=== PATIENT | male | born 1940 | race Caucasian/White ===

== ENCOUNTER → 2016-08-13 | Outpatient (CLI) | payer MEDICARE, BC ==
[2014-01-13 11:23] VITALS: BP 149/80
[~2016-08-13] MED LIST: ACET-58 PO; ACET325T9 PO; ASCO500T PO; ASPI81TA2 PO; CALC600T PO; CETI10TA22 PO; DABI150C PO; DILT120C97 PO; DILT240C2 PO; DIPH25CA32 PO; FISH1CAP PO; LEVO50TA5 PO; MULT-245 PO; OMEP20CA5 PO; RANI150C PO
--- NOTE | 2016-08-14 18:13 | CARD ---
APPROVED REPORT EXAM: Two-dimensional and M-mode echocardiogram with Doppler and color Doppler. Other Information Quality : GoodHR: 57bpm INDICATION Dizziness and Vertigo Atrial Fibrillation 2D DIMENSIONS RVDd3.0 (2.9-3.5cm)Left Atrium(2D)3.5 (1.6-4.0cm) IVSd0.9 (0.7-1.1cm)Aortic Root(2D)2.9 (2.0-3.7cm) LVDd4.9 (3.9-5.9cm)LVOT Diameter2.2 (1.8-2.4cm) PWd0.8 (0.7-1.1cm)LVDs3.5 (2.5-4.0cm) FS (%) 29.2 %SV62.3 ml LVEF(%)55.9 (>50%) Aortic Valve AoV Peak Darrin.146.7cm/sAoV VTI35.6cm AO Peak GR.8.6mmHgLVOT Peak Darrin.94.7cm/s LVOT VTI 22.55cmAO Mean GR.5mmHg WARD (VMAX)2.86oh7LDN (VTI)2.48cm2 AI P 1/2 Wwgc973db Mitral Valve MV E Ifpbilzt23.6cm/sMV DECEL TNXK800aq MV A Fqlkwkom51.5cm/sMV E Mean Gr.2mmHg MV TGG00cbQ/A Ratio0.9 MV A Gfjhxcmh461rlAOK (PHT)3.03cm2 TDI E/Lateral E'10.0E/Medial E'12.4 Pulmonary Valve PV Peak Lxaysfpb77.8cm/sPV Peak Grad.3mmHg RVOT VTI18.4cm Tricuspid Valve TR P. Hryklqqx955gk/sRAP TQWPFJAP4ggLi TR Peak Gr.36kwLeBVUN92nbRx Pulmonary Vein S1 Aazrigzo87.6cm/sD2 Opgrbbmv81.2cm/s PVa bbvszoze888azjs LEFT VENTRICLE The left ventricle is normal size. There is normal left ventricular wall thickness. Left ventricle sy stolic function is normal. The Ejection Fraction is 50-55%. There is normal LV segmental wall motion. Transmitral Doppler flow pattern is Grade I-abnormal relaxation pattern. There is no ventricular sep myles defect visualized. RIGHT VENTRICLE The right ventricle is normal size. There is normal right ventricular wall thickness. The right ventr icular systolic function is normal. ATRIA The left atrium size is normal. The right atrium size is normal. The atrial septum is aneurysmal. The re is no Doppler evidence for an atrial septal defect. AORTIC VALVE The aortic valve is mildly thickened. The aortic valve is trileaflet. Doppler and Color Flow revealed mild aortic regurgitation. There is no significant aortic valvular stenosis. MITRAL VALVE The mitral valve is normal in structure and function. There is no evidence of mitral valve prolapse. There is no mitral valve stenosis. Doppler and Color Flow revealed mild to moderate mitral regurgitat ion. TRICUSPID VALVE The tricuspid valve is normal in structure and function. Doppler and Color Flow revealed trace tricus pid regurgitation. The PA pressure was estimated at 22 mmHg. PULMONIC VALVE The pulmonary valve is normal in structure and function. Doppler and Color Flow revealed trace pulmon ic valvular regurgitation. GREAT VESSELS The aortic root is normal in size. The ascending aorta is normal in size. Normal pulmonary venous kiley w (Doppler). The IVC is normal in size and collapses >50% with inspiration. PERICARDIAL EFFUSION There is no pleural effusion. There is no evidence of significant pericardial effusion. Critical Notification Critical Value: No <Conclusion> The left ventricle is normal size. Left ventricle systolic function is normal. The Ejection Fraction is 50-55%. There is no significant aortic valvular stenosis. Doppler and Color Flow revealed mild aortic regurgitation. Doppler and Color Flow revealed mild to moderate mitral regurgitation. Doppler and Color Flow revealed trace tricuspid regurgitation. The PA pressure was estimated at 22 mmHg.
== END | disposition home or self-care (01) ==
LOC: ECHO 12:57
PROVIDERS: ATTEND Internal Medicine Cardiovascular Disease
DX: I48.91 Unspecified atrial fibrillation (principal); R42 Dizziness and giddiness; I35.1 Nonrheumatic aortic (valve) insufficiency; I34.0 Nonrheumatic mitral (valve) insufficiency; I07.1 Rheumatic tricuspid insufficiency
CPT/HCPCS: 93306

== ENCOUNTER → 2016-08-19 | Outpatient (CLI) | payer MEDICARE, BC ==
[2014-01-13 11:23] VITALS: BP 149/80
[2016-08-19 17:05] LABS: ALBUMIN 3.8 g/dL (3.4-5.0); ALBUMIN/GLOBULIN RATIO 1.1 (1.0-1.7); CALCIUM 9.1 mg/dL (8.5-10.1); CREATININE 1.3 mg/dL (0.7-1.3); GFR 53.7; POTASSIUM 4.5 mmol/L (3.5-5.1); TOTAL BILIRUBIN 0.5 mg/dL (0.2-1.0); TOTAL PROTEIN 7.4 g/dL (6.4-8.2)
[2016-08-19 17:06] LABS: CHOLESTEROL/HDL RATIO 4.5
== END | disposition home or self-care (01) ==
LOC: LAB 16:23
PROVIDERS: ATTEND Family Medicine
DX: E03.9 Hypothyroidism, unspecified (principal)
CPT/HCPCS: 36415; 80053; 80061; 84443

== ENCOUNTER → 2016-12-17 | Outpatient (CLI) | payer MEDICARE, BC ==
[2014-01-13 11:23] VITALS: BP 149/80
[~2016-12-17] MED LIST changes: +ASPI-630 PO; -ASPI81TA2 PO; +DILT120C80 PO; -DILT120C97 PO
[2016-12-17 15:25] LABS: BASO # 0.1 x10^3/uL (0.0-0.2); BASO % 1 % (0-3); EOS % 3 % (0-3); HEMATOCRIT 43.6 % (39.0-53.0); HEMOGLOBIN 15.2 g/dL (13.0-17.5); LYMPH # 2.4 x10^3/uL (1.0-4.8); LYMPH % 36 % (24-48); MEAN CORPUSCULAR HEMOGLOBIN 32 pg (25-35); MEAN CORPUSCULAR HGB CONC 35 g/dL (31-37); MEAN CORPUSCULAR VOLUME 93 fL (79-100); MONO % 12 % (0-9); NEUT % 48 % (31-73); PLATELET COUNT 212 x10^3/uL (140-400); RED BLOOD COUNT 4.71 x10^6/uL (4.30-5.70); RED CELL DISTRIBUTION WIDTH 13.4 % (11.5-14.5); WHITE BLOOD COUNT 6.6 x10^3/uL (4.0-11.0)
[2016-12-17 15:42] LABS: CALCIUM 8.4 mg/dL (8.5-10.1); CREATININE 1.3 mg/dL (0.7-1.3); GFR 53.5; PHOSPHORUS 3.3 mg/dL (2.6-4.7); POTASSIUM 4.4 mmol/L (3.5-5.1)
[2016-12-18 04:19] LABS: PTH INTACT 33 pg/mL (15-65)
== END | disposition home or self-care (01) ==
LOC: LAB 14:41
PROVIDERS: ATTEND Internal Medicine Nephrology
DX: N18.3 Chronic kidney disease, stage 3 (moderate) (principal)
CPT/HCPCS: 36415; 80069; 83970; 85027

== ENCOUNTER → 2017-11-24 | Outpatient (CLI) | payer MEDICARE, BC ==
[2017-11-24 16:42] LABS: ADD MAN DIFF? NO
[2017-11-24 16:58] LABS: BASO # 0.1 x10^3/uL (0.0-0.2); BASO % 1 % (0-3); EOS # 0.1 x10^3/uL (0.0-0.7); EOS % 1 % (0-3); HEMATOCRIT 45.4 % (39.0-53.0); HEMOGLOBIN 15.6 g/dL (13.0-17.5); LYMPH # 2.2 x10^3/uL (1.0-4.8); LYMPH % 26 % (24-48); MEAN CORPUSCULAR HEMOGLOBIN 32 pg (25-35); MEAN CORPUSCULAR HGB CONC 34 g/dL (31-37); MEAN CORPUSCULAR VOLUME 92 fL (79-100); MONO # 0.9 x10^3/uL (0.0-1.1); MONO % 12 % (0-9); NEUT # 4.9 x10^3uL (1.8-7.7); NEUT % 60 % (31-73); PLATELET COUNT 212 x10^3/uL (140-400); RED BLOOD COUNT 4.92 x10^6/uL (4.30-5.70); RED CELL DISTRIBUTION WIDTH 13.5 % (11.5-14.5); WHITE BLOOD COUNT 8.2 x10^3/uL (4.0-11.0)
[2017-11-24 17:08] LABS: BLOOD UREA NITROGEN 34 mg/dL (8-26); CALCIUM 9.2 mg/dL (8.5-10.1); CREATININE 1.4 mg/dL (0.7-1.3); GLUCOSE 99 mg/dL (70-99); TOTAL PROTEIN 7.9 g/dL (6.4-8.2)
[2017-11-24 17:09] LABS: ALK PHOS 92 U/L (46-116); ALT (SGPT) 21 U/L (16-63); ANION GAP 9 (6-14); AST (SGOT) 15 U/L (15-37); BUN/CREATININE RATIO 24 (6-20); CARBON DIOXIDE 26 mmol/L (21-32); CHLORIDE 102 mmol/L (98-107); CHOLESTEROL 219 mg/dL (0-200); HDLC 40 mg/dL (40-60); LDLC 149 mg/dL (0-100); NON-HDL CHOLESTEROL 179 mg/dL (0-129); POTASSIUM 4.8 mmol/L (3.5-5.1); SODIUM 137 mmol/L (136-145); TOTAL BILIRUBIN 0.5 mg/dL (0.2-1.0); TRIGLYCERIDES 149 mg/dL (0-150); VLDLC 30 mg/dL (0-40)
[2017-11-24 17:12] LABS: CHOLESTEROL/HDL RATIO 5.5
[2017-11-24 17:16] LABS: THYROID STIM HORMONE (TSH) 2.327 uIU/mL (0.358-3.74)
== END | disposition home or self-care (01) ==
LOC: LAB 16:21
DX: I10 Essential (primary) hypertension (principal); N18.9 Chronic kidney disease, unspecified; E03.9 Hypothyroidism, unspecified
CPT/HCPCS: 36415; 80053; 80061; 84443; 85025

== ENCOUNTER → 2017-12-21 | Outpatient (CLI) | payer MEDICARE, BC ==
[2017-12-21 15:20] LABS: ADD MAN DIFF? NO
[2017-12-21 15:28] LABS: BASO # 0.1 x10^3/uL (0.0-0.2); BASO % 1 % (0-3); EOS # 0.1 x10^3/uL (0.0-0.7); EOS % 2 % (0-3); HEMATOCRIT 45.6 % (39.0-53.0); HEMOGLOBIN 15.7 g/dL (13.0-17.5); LYMPH # 2.1 x10^3/uL (1.0-4.8); LYMPH % 26 % (24-48); MEAN CORPUSCULAR HEMOGLOBIN 32 pg (25-35); MEAN CORPUSCULAR HGB CONC 34 g/dL (31-37); MEAN CORPUSCULAR VOLUME 92 fL (79-100); MONO # 0.9 x10^3/uL (0.0-1.1); MONO % 11 % (0-9); NEUT % 61 % (31-73); PLATELET COUNT 199 x10^3/uL (140-400); RED BLOOD COUNT 4.95 x10^6/uL (4.30-5.70); RED CELL DISTRIBUTION WIDTH 13.7 % (11.5-14.5); WHITE BLOOD COUNT 8.2 x10^3/uL (4.0-11.0)
[2017-12-21 16:47] LABS: ANION GAP 13 (6-14); BLOOD UREA NITROGEN 21 mg/dL (8-26); CALCIUM 8.8 mg/dL (8.5-10.1); CARBON DIOXIDE 23 mmol/L (21-32); CHLORIDE 103 mmol/L (98-107); CREATININE 1.3 mg/dL (0.7-1.3); GFR 53.4; GLUCOSE 102 mg/dL (70-99); PHOSPHORUS 3.1 mg/dL (2.6-4.7); POTASSIUM 4.7 mmol/L (3.5-5.1); SODIUM 139 mmol/L (136-145)
[2017-12-22 06:12] LABS: CALCIUM PTH 9.7 mg/dL (8.6-10.2); CREATININE PTH 1.26 mg/dL (0.76-1.27); PHOSPHORUS PTH 3.2 mg/dL (2.5-4.5); PTH INTACT 40 pg/mL (15-65); eGFR AFRICAN-AMER 63 (>59); eGFR NON AFRICAN-AMER 54 (>59)
== END | disposition home or self-care (01) ==
LOC: LAB 15:04
DX: I12.9 Hypertensive chronic kidney disease with stage 1 through stage 4 chronic kidney disease, or unspecified chronic kidney disease (principal); N18.3 Chronic kidney disease, stage 3 (moderate)
CPT/HCPCS: 36415; 80069; 83970; 85025

== ENCOUNTER → 2018-03-15 | Outpatient (CLI) | payer MEDICARE, BC ==
[2014-01-13 11:23] VITALS: BP 149/80
[2018-03-15 16:33] LABS: ALBUMIN/GLOBULIN RATIO 1.1 (1.0-1.7); CALCIUM 9.3 mg/dL (8.5-10.1); CREATININE 1.2 mg/dL (0.7-1.3); GFR 58.6; POTASSIUM 4.1 mmol/L (3.5-5.1); TOTAL BILIRUBIN 0.6 mg/dL (0.2-1.0); TOTAL PROTEIN 7.7 g/dL (6.4-8.2)
== END | disposition home or self-care (01) ==
LOC: LAB 15:47
PROVIDERS: ATTEND Family Medicine
DX: E78.5 Hyperlipidemia, unspecified (principal)
CPT/HCPCS: 36415; 80053; 80061

== ENCOUNTER → 2018-08-18 | Outpatient (CLI) | payer MEDICARE, BC ==
[2014-01-13 11:23] VITALS: BP 149/80
[~2018-08-18] MED LIST changes: +AMIO200T4 PO; +APIX2.5T PO; -DILT120C80 PO; +DILT120C85 PO
--- NOTE | 2018-08-18 17:37 | CARD ---
MR#: [id number] Date of Study: 08/18/2018 Ordering Physician: ANUSHA CLAIRE, Referring Physician: ANUSHA CLAIRE, Tech: Maite Sheffield APPROVED REPORT EXAM: Two-dimensional and M-mode echocardiogram with Doppler and color Doppler. Other Information Quality : AverageHR: 98bpm Rhythm : Atrial Fibrillation INDICATION Atrial Fibrillation RISK FACTORS Hypertension Hyperlipidemia 2D DIMENSIONS RVDd2.6 (2.9-3.5cm)Left Atrium(2D)3.5 (1.6-4.0cm) IVSd1.2 (0.7-1.1cm)Aortic Root(2D)3.1 (2.0-3.7cm) LVDd5.3 (3.9-5.9cm)LVOT Diameter2.2 (1.8-2.4cm) PWd1.0 (0.7-1.1cm)LVDs4.5 (2.5-4.0cm) FS (%) 14.3 %SV40.1 ml Aortic Valve AoV Peak Darrin.147.2cm/sAoV VTI28.4cm AO Peak GR.8.7mmHgLVOT Peak Darrin.99.1cm/s LVOT VTI 19.60cmAO Mean GR.6mmHg WARD (VMAX)1.96zh7QUY (VTI)2.63cm2 AI P 1/2 Yews949bf Mitral Valve MV E Peak Gr.146mmHgMV E Mean Gr.3mmHg Pulmonary Valve PV Peak Wjrsxxxr476.2cm/sPV Peak Grad.6mmHg Tricuspid Valve TR P. Fbqkjbkl592mf/sRAP KBNTJDNP5qdXx TR Peak Gr.55hrRvCJHL08dfFl Pulmonary Vein S1 Hpjwblwh61.9cm/sD2 Yynvixyj10.4cm/s PVa tlddjmnk525tvbf LEFT VENTRICLE The left ventricle is normal size. There is borderline concentric left ventricular hypertrophy. The l eft ventricular systolic function is normal The Ejection Fraction is 50-55% There is normal LV segmen myles wall motion. Diastology indeterminate RIGHT VENTRICLE The right ventricle is normal size. There is normal right ventricular wall thickness. The right ventr icular systolic function is normal. ATRIA The left atrium is borderline dilated. The right atrium size is normal. The interatrial septum bows t o the right. AORTIC VALVE The aortic valve is thickened but opens well. Doppler and Color Flow revealed mild aortic regurgitati on. There is no significant aortic valvular stenosis. MITRAL VALVE The mitral valve is normal in structure and function. There is no evidence of mitral valve prolapse. There is no mitral valve stenosis. Doppler and Color-flow revealed mild to moderate mitral regurgitat ion. TRICUSPID VALVE The tricuspid valve is normal in structure and function. Doppler and Color Flow revealed mild tricusp id regurgitation with an estimated PAP of 28 mmHg. There is no tricuspid valve stenosis. PULMONIC VALVE The pulmonic valve is not well visualized. Doppler and Color Flow revealed no pulmonic valvular regur gitation. GREAT VESSELS The aortic root is normal in size. The IVC is normal in size and collapses >50% with inspiration. PERICARDIAL EFFUSION There is no evidence of significant pericardial effusion. Critical Notification Critical Value: No <Conclusion> The left ventricular systolic function is normal The Ejection Fraction is 50-55% Mild aortic regurgitation. Mild to moderate mitral regurgitation. Mild tricuspid regurgitation with an estimated PAP of 28 mmHg. There is no evidence of significant pericardial effusion. Signed by : Anusha Claire, Electronically Approved : 08/18/2018 17:36:15
== END | disposition home or self-care (01) ==
LOC: ECHO 13:03
PROVIDERS: ATTEND Internal Medicine Cardiovascular Disease
DX: I08.3 Combined rheumatic disorders of mitral, aortic and tricuspid valves (principal); I48.91 Unspecified atrial fibrillation; I10 Essential (primary) hypertension; E78.5 Hyperlipidemia, unspecified
CPT/HCPCS: 93306

== ENCOUNTER 2018-10-22 11:19 | Day surgery (SDC) | payer MEDICARE, BC ==
--- NOTE | 2018-10-21 09:49 | NUR ---
SPOKE WITH PT REGARDING PREOP TIMES, AND MEDS TO TAKE IN AM INCLUDING THYROID, CARDIZEM, PRILOSEC, AMIODARONE, ELLIQUIS. EXTREMELY HARD OF HEARING. HX ENTERED BUT NEEDS REVIEWED ON DOS.
[~2018-10-22 11:19] MED LIST changes: +HYDROmorphone 2 MG/ML VIAL IV PRN; +IV RINGERS,LACTATED 1000ML 1,000 ML IV SCH; +MORPHINE SULFATE 2 MG/ML VIAL. IV PRN; +ONDANSETRON PF 4 MG/2 ML VIAL. IV PRN; +PROCHLORPERAZINE 10 MG/2 ML VIAL. IV PRN; +fentaNYL PF VIAL 100 MCG/2 ML VIAL IV PRN
[2018-10-22] MEDS ORDERED: IV NORMAL SALINE 1000ML BAG 1,000 ML IV SCH (11:45)
--- NOTE | 2018-10-22 12:06 | EKG ---
[facility] [address] [place] [address] Test Date: 2018-10-22 Test Time: 12:06:48 Pat Name: RENEE LEA Department: Room: Gender: M Transportation Program Director: : 1940 Requested By: GARRETT HOLMAN Order Number: [id number] Reading MD: Garrett Holman Measurements Intervals [employer] Rate: 100 P: CA: QRS: 29 QRSD: 80 T: 60 QT: 356 QTc: 462 Interpretive Statements ATRIAL FIBRILLATION QRS(T) CONTOUR ABNORMALITY CONSISTENT WITH ANTEROSEPTAL INFARCT PROBABLY OLD ABNORMAL ECG Electronically Signed On 11-12-2018 12:31:16 CDT by Garrett Holman
[2018-10-22 12:07] LABS: BASO # 0.1 x10^3/uL (0.0-0.2); BASO % 1 % (0-3); EOS # 0.1 x10^3/uL (0.0-0.7); EOS % 2 % (0-3); HEMATOCRIT 47.3 % (39.0-53.0); LYMPH # 1.7 x10^3/uL (1.0-4.8); LYMPH % 21 % (24-48); MEAN CORPUSCULAR HEMOGLOBIN 32 pg (25-35); MEAN CORPUSCULAR HGB CONC 34 g/dL (31-37); MEAN CORPUSCULAR VOLUME 94 fL (79-100); MONO # 0.7 x10^3/uL (0.0-1.1); MONO % 9 % (0-9); NEUT # 5.5 x10^3uL (1.8-7.7); NEUT % 67 % (31-73); PLATELET COUNT 197 x10^3/uL (140-400); RED BLOOD COUNT 5.02 x10^6/uL (4.30-5.70); RED CELL DISTRIBUTION WIDTH 13.2 % (11.5-14.5); WHITE BLOOD COUNT 8.2 x10^3/uL (4.0-11.0)
[2018-10-22 12:16] LABS: PROTHROMBIN TIME PATIENT 17.6 SEC (11.7-14.0)
[2018-10-22 12:23] LABS: CALCIUM 9.6 mg/dL (8.5-10.1); CREATININE 1.5 mg/dL (0.7-1.3); GFR 45.3; POTASSIUM 4.4 mmol/L (3.5-5.1)
[2018-10-22 15:00] VITALS: BP 157/87
--- NOTE | 2018-10-22 15:03 | PDOC4 ---
PROCEDURE Procedure PROCEDURE External cardioversion INDICATIONS Atrial fibrillation COMPLICATIONS None PROCEDURAL DETAILS An informed consent was obtained from patient. After anesthesiology team gave intravenous propofol for general anesthesia, patient was administered 200 J of synchronized biphasic DC shock therapy with successful conversion of patient's rhythm from atrial fibrillation to sinus rhythm. He tolerated the procedure well. He was hemodynamically stable without any neurological deficits at the end of procedure. CONCLUSIONS Successful cardioversion of patient's rhythm from atrial fibrillation to sinus rhythm. ANUSHA HOLMAN MD October 22, 2018 15:03
== END 2018-10-22 15:28 | disposition home or self-care (01) ==
LOC: SURG 11:19
PROVIDERS: ATTEND Internal Medicine Cardiovascular Disease
DX: I48.91 Unspecified atrial fibrillation (principal); I10 Essential (primary) hypertension; E03.9 Hypothyroidism, unspecified; E78.5 Hyperlipidemia, unspecified; Z79.899 Other long term (current) drug therapy; Z79.82 Long term (current) use of aspirin
CPT/HCPCS: 36415; 80048; 85025; 85610; 92960; 93005

== ENCOUNTER → 2018-12-08 | Outpatient (CLI) | payer MEDICARE, BC ==
[~2018-12-08] MED LIST changes: -HYDROmorphone 2 MG/ML VIAL IV PRN; -IV RINGERS,LACTATED 1000ML 1,000 ML IV SCH; -MORPHINE SULFATE 2 MG/ML VIAL. IV PRN; -ONDANSETRON PF 4 MG/2 ML VIAL. IV PRN; -PROCHLORPERAZINE 10 MG/2 ML VIAL. IV PRN; -fentaNYL PF VIAL 100 MCG/2 ML VIAL IV PRN
--- NOTE | 2018-12-14 12:28 | SLEEP ---
DATE OF STUDY: 12/08/2018 ATTENDING PHYSICIAN: Dr. Bhardwaj. The patient is a 78-year-old who weighs 165 pounds with a BMI of 25. The patient's [place] score was 6. The patient underwent a diagnostic sleep study performed at [facility]. During the night study, the patient spent 425 minutes in bed and slept for 291 minutes with a low sleep efficiency of 68%. Sleep latency was 26 minutes with a REM latency of 262 minutes. Overall sleep architecture showed increased stage 1 and stage 2 sleep, normal slow wave and reduced REM sleep, which was only 2% of the total sleep time. During the night study, the patient had 37 obstructive apneas, no mixed or central apneas, and 12 hypopneas. The patient's apnea hypopnea index was 10 per hour, supine index 13 per hour and the REM index was 66 per hour. EKG monitoring revealed an average heart rate of 64 beats per minute, no sustained arrhythmias were observed. Nocturnal oximetry study revealed a mean oxygen saturation of 94% with the lowest of 87%. Only 0.7% of time oxygen saturation remained between 80% and 89%. PLMS were seen at index of 1 per hour. Due to low AHI, the patient did not meet the split night criteria for CPAP initiation. IMPRESSION: 1. Mild sleep apnea-hypopnea syndrome with worsening during REM sleep. Total apnea-hypopnea index 10 per hour with a REM apnea-hypopnea index of 66 per hour. 2. Mild nocturnal hypoxia secondary to obstructive sleep apnea. 3. No clinically significant periodic limb movements of sleep. RECOMMENDATIONS: 1. The patient has mild sleep apnea. If the patient is clinically symptomatic or has comorbid conditions, then the patient would benefit from treatment of sleep apnea with either oral appliance as recommended by the dentist versus a trial of CPAP. 2. Once the patient is optimally treated, then follow up in 4-6 weeks to assess compliance with treatment and to document clinical improvement. 3. Avoid OUTCOME ANALYST depressants. 4. Cautioned regarding driving until symptoms of sleep apnea have resolved with the above recommendations. SOPHIA STAPLETON MD DR: WILMAR/malik JOB#: [id number] / [id number] BLOSSOM Keller MD
== END | disposition home or self-care (01) ==
LOC: SLPLAB 18:25
PROVIDERS: ATTEND Internal Medicine Critical Care Medicine
DX: G47.33 Obstructive sleep apnea (adult) (pediatric) (principal); G47.34 Idiopathic sleep related nonobstructive alveolar hypoventilation
CPT/HCPCS: 95810

== ENCOUNTER → 2018-12-13 | Outpatient (CLI) | payer MEDICARE, BC ==
[2018-12-13 14:45] LABS: BASO # 0.1 x10^3/uL (0.0-0.2); BASO % 1 % (0-3); EOS # 0.1 x10^3/uL (0.0-0.7); EOS % 1 % (0-3); HEMATOCRIT 44.9 % (39.0-53.0); HEMOGLOBIN 15.6 g/dL (13.0-17.5); LYMPH # 1.5 x10^3/uL (1.0-4.8); LYMPH % 19 % (24-48); MEAN CORPUSCULAR HEMOGLOBIN 33 pg (25-35); MEAN CORPUSCULAR HGB CONC 35 g/dL (31-37); MEAN CORPUSCULAR VOLUME 94 fL (79-100); MONO # 0.8 x10^3/uL (0.0-1.1); MONO % 10 % (0-9); NEUT # 5.4 x10^3uL (1.8-7.7); NEUT % 69 % (31-73); PLATELET COUNT 205 x10^3/uL (140-400); RED BLOOD COUNT 4.79 x10^6/uL (4.30-5.70); RED CELL DISTRIBUTION WIDTH 14.1 % (11.5-14.5); WHITE BLOOD COUNT 7.9 x10^3/uL (4.0-11.0)
[2018-12-13 15:06] LABS: CALCIUM 9.1 mg/dL (8.5-10.1); CREATININE 1.7 mg/dL (0.7-1.3); GFR 39.1; PHOSPHORUS 3.5 mg/dL (2.6-4.7); POTASSIUM 4.5 mmol/L (3.5-5.1)
[2018-12-14 14:13] LABS: CALCIUM PTH 9.3 mg/dL (8.6-10.2); CREATININE PTH 1.55 mg/dL (0.76-1.27); PHOSPHORUS PTH 3.5 mg/dL (2.5-4.5); PTH INTACT 38 pg/mL (15-65)
== END | disposition home or self-care (01) ==
LOC: LAB 14:16
PROVIDERS: ATTEND Internal Medicine Nephrology
DX: I12.9 Hypertensive chronic kidney disease with stage 1 through stage 4 chronic kidney disease, or unspecified chronic kidney disease (principal); N18.3 Chronic kidney disease, stage 3 (moderate); Z68.25 Body mass index [BMI] 25.0-25.9, adult
CPT/HCPCS: 36415; 80069; 83970; 85025

== ENCOUNTER → 2019-05-19 | Outpatient (CLI) | payer MEDICARE, BC ==
[~2019-05-19] MED LIST changes: +ASCO-219 PO; -ASCO500T PO; -DILT120C85 PO; +DILT120C99 PO
--- NOTE | 2019-05-19 16:21 | CARD ---
MR#: [id number] Date of Study: 05/19/2019 Ordering Physician: ANUSHA CLAIRE, Referring Physician: ANUSHA CLAIRE, Tech: Maite Sheffield APPROVED REPORT EXAM: Two-dimensional and M-mode echocardiogram with Doppler and color Doppler. Other Information Quality : GoodHR: 60bpm INDICATION Atrial Fibrillation RISK FACTORS Hypertension 2D DIMENSIONS RVDd2.8 (2.9-3.5cm)Left Atrium(2D)3.2 (1.6-4.0cm) IVSd1.3 (0.7-1.1cm)Aortic Root(2D)3.4 (2.0-3.7cm) LVDd4.6 (3.9-5.9cm)LVOT Diameter2.3 (1.8-2.4cm) PWd1.3 (0.7-1.1cm)LVDs3.6 (2.5-4.0cm) FS (%) 20.2 %SV39.5 ml LVEF(%)41.5 (>50%) Aortic Valve AoV Peak Darrin.164.6cm/sAoV VTI31.6cm AO Peak GR.10.8mmHgLVOT Peak Darrin.90.7cm/s LVOT VTI 23.03cmAO Mean GR.6mmHg WARD (VMAX)1.68bc2JVX (VTI)2.91cm2 AI P 1/2 Tysd399lr Mitral Valve MV E Mzslcqri11.1cm/sMV DECEL VGDJ094jn MV A Lhwbnves55.4cm/sMV E Mean Gr.1mmHg MV AXE89kbX/A Ratio0.9 MVA (PHT)3.05cm2 TDI E/Lateral E'13.2E/Medial E'15.6 Pulmonary Valve PV Peak Xuepgzhi96.9cm/sPV Peak Grad.4mmHg Tricuspid Valve TR P. Nceqwigl152vv/sRAP QXYBZDYU1hwQk TR Peak Gr.90mjRwRFVB74roBb Pulmonary Vein S1 Srqnoxax03.0cm/sD2 Diycrkkp27.0cm/s PVa heslmdao820uivf LEFT VENTRICLE The left ventricle is normal size. There is moderate concentric left ventricular hypertrophy. The lef t ventricular systolic function is normal. The Ejection Fraction is 55-60%. There is normal LV segmen myles wall motion. Transmitral Doppler flow pattern is Grade I-abnormal relaxation pattern. RIGHT VENTRICLE The right ventricle is normal size. There is normal right ventricular wall thickness. The right ventr icular systolic function is normal. ATRIA The left atrium size is normal. The right atrium size is normal. The atrial septum is aneurysmal. AORTIC VALVE The aortic valve is calcified but opens well. Doppler and Color Flow revealed mild aortic regurgitati on. There is no significant aortic valvular stenosis. MITRAL VALVE The mitral valve is normal in structure and function. There is no evidence of mitral valve prolapse. There is no mitral valve stenosis. Doppler and Color-flow revealed mild mitral regurgitation. TRICUSPID VALVE The tricuspid valve is normal in structure and function. Doppler and Color Flow revealed trace tricus pid regurgitation with an estimated PAP 32 mmHg. There is no tricuspid valve stenosis. PULMONIC VALVE The pulmonic valve is not well visualized. Doppler and Color Flow revealed no pulmonic valvular regur gitation. GREAT VESSELS The aortic root is normal in size. The IVC is normal in size and collapses >50% with inspiration. PERICARDIAL EFFUSION There is no evidence of significant pericardial effusion. Critical Notification Critical Value: No <Conclusion> The left ventricular systolic function is normal. The Ejection Fraction is 55-60%. There is normal LV segmental wall motion. Transmitral Doppler flow pattern is Grade I-abnormal relaxation pattern. Mild aortic regurgitation. Mild mitral regurgitation. Trace tricuspid regurgitation with an estimated PAP 32 mmHg. There is no evidence of significant pericardial effusion. Signed by : Anusha Claire, Electronically Approved : 05/19/2019 16:20:39
== END | disposition home or self-care (01) ==
LOC: ECHO 15:01
PROVIDERS: ATTEND Internal Medicine Cardiovascular Disease
DX: I08.0 Rheumatic disorders of both mitral and aortic valves (principal); I48.91 Unspecified atrial fibrillation; I10 Essential (primary) hypertension
CPT/HCPCS: 93306

== ENCOUNTER → 2019-12-08 | Outpatient (CLI) | payer MEDICARE, BC ==
[~2019-12-08] MED LIST changes: -ASCO-219 PO; +ASCO500T53 PO; -CETI10TA22 PO; +CETI10TA74 PO
[2019-12-08 16:29] LABS: BASO % 1 % (0-3); EOS # 0.1 x10^3/uL (0.0-0.7); EOS % 1 % (0-3); HEMATOCRIT 44.6 % (39.0-53.0); HEMOGLOBIN 15.4 g/dL (13.0-17.5); LYMPH # 1.5 x10^3/uL (1.0-4.8); MEAN CORPUSCULAR HEMOGLOBIN 32 pg (25-35); MEAN CORPUSCULAR HGB CONC 35 g/dL (31-37); MEAN CORPUSCULAR VOLUME 94 fL (79-100); MONO % 10 % (0-9); RED BLOOD COUNT 4.77 x10^6/uL (4.30-5.70); RED CELL DISTRIBUTION WIDTH 13.7 % (11.5-14.5); WHITE BLOOD COUNT 6.4 x10^3/uL (4.0-11.0)
[2019-12-08 16:30] LABS: BASO # 0.1 x10^3/uL (0.0-0.2); LYMPH % 23 % (24-48); MONO # 0.7 x10^3/uL (0.0-1.1); NEUT # 4.2 x10^3/uL (1.8-7.7); NEUT % 65 % (31-73); PLATELET COUNT 191 x10^3/uL (140-400)
[2019-12-08 17:11] LABS: ALBUMIN 3.6 g/dL (3.4-5.0); ALBUMIN/GLOBULIN RATIO 1.1 (1.0-1.7); CALCIUM 8.5 mg/dL (8.5-10.1); CREATININE 1.6 mg/dL (0.7-1.3); GFR 41.8; POTASSIUM 4.3 mmol/L (3.5-5.1); TOTAL BILIRUBIN 0.5 mg/dL (0.2-1.0)
[2019-12-08 17:14] LABS: CHOLESTEROL/HDL RATIO 2.5
== END | disposition home or self-care (01) ==
LOC: LAB 15:59
PROVIDERS: ATTEND Family Medicine
DX: I10 Essential (primary) hypertension (principal)
CPT/HCPCS: 36415; 80053; 80061; 84436; 85025

== ENCOUNTER → 2019-12-08 | Outpatient (CLI) | payer MEDICARE, BC ==
[2019-12-08 16:25] LABS: BASO # 0.1 x10^3/uL (0.0-0.2); BASO % 1 % (0-3); EOS # 0.1 x10^3/uL (0.0-0.7); EOS % 1 % (0-3); HEMATOCRIT 44.6 % (39.0-53.0); HEMOGLOBIN 15.4 g/dL (13.0-17.5); LYMPH # 1.5 x10^3/uL (1.0-4.8); LYMPH % 23 % (24-48); MEAN CORPUSCULAR HEMOGLOBIN 32 pg (25-35); MEAN CORPUSCULAR HGB CONC 35 g/dL (31-37); MEAN CORPUSCULAR VOLUME 94 fL (79-100); MONO # 0.7 x10^3/uL (0.0-1.1); MONO % 10 % (0-9); NEUT # 4.2 x10^3/uL (1.8-7.7); NEUT % 65 % (31-73); PLATELET COUNT 191 x10^3/uL (140-400); RED BLOOD COUNT 4.77 x10^6/uL (4.30-5.70); RED CELL DISTRIBUTION WIDTH 13.7 % (11.5-14.5); WHITE BLOOD COUNT 6.4 x10^3/uL (4.0-11.0)
[2019-12-08 17:16] LABS: ALBUMIN 3.6 g/dL (3.4-5.0); CALCIUM 8.5 mg/dL (8.5-10.1); CREATININE 1.6 mg/dL (0.7-1.3); GFR 41.8; POTASSIUM 4.3 mmol/L (3.5-5.1)
[2019-12-08 17:31] LABS: PHOSPHORUS 3.6 mg/dL (2.6-4.7)
[2019-12-09 08:13] LABS: CALCIUM PTH 9.3 mg/dL (8.6-10.2); CREATININE PTH 1.47 mg/dL (0.76-1.27); PHOSPHORUS PTH 3.5 mg/dL (2.8-4.1); PTH INTACT 38 pg/mL (15-65)
== END | disposition home or self-care (01) ==
LOC: LAB 15:43
PROVIDERS: ATTEND Internal Medicine Nephrology
DX: I12.9 Hypertensive chronic kidney disease with stage 1 through stage 4 chronic kidney disease, or unspecified chronic kidney disease (principal); N18.2 Chronic kidney disease, stage 2 (mild); Z68.25 Body mass index [BMI] 25.0-25.9, adult
CPT/HCPCS: 36415; 80053; 80061; 80069; 83970; 84436; 85025

== ENCOUNTER → 2020-12-06 | Outpatient (CLI) | payer MEDICARE, BC ==
[2020-05-09 14:47] VITALS: BP 101/53
[~2020-12-06] MED LIST changes: +ACET500T33 PO; -AMIO200T4 PO; +AMIO200T6 PO; +AMLO-187 PO; +APIX5TAB PO; +ATOR10TA60 PO; +ATOR40TA59 PO; +CALC1TAB PO; +CLOP75TA PO; +DILT240C33 PO; +DILT240T8 PO; +LEVO-101 PO; +METO25TA4 PO; +MULT-658 PO; +NITR0.4T24 SL; +OMEG-117 PO; +OMEP20TA63 PO
[2020-12-06 16:12] LABS: BASO # 0.1 x10^3/uL (0.0-0.2); BASO % 1 % (0-3); EOS # 0.1 x10^3/uL (0.0-0.7); EOS % 2 % (0-3); HEMOGLOBIN 14.2 g/dL (13.0-17.5); LYMPH # 1.7 x10^3/uL (1.0-4.8); LYMPH % 29 % (24-48); MEAN CORPUSCULAR HEMOGLOBIN 32 pg (25-35); MEAN CORPUSCULAR HGB CONC 35 g/dL (31-37); MEAN CORPUSCULAR VOLUME 93 fL (79-100); MONO # 0.7 x10^3/uL (0.0-1.1); MONO % 12 % (0-9); NEUT # 3.4 x10^3/uL (1.8-7.7); NEUT % 57 % (31-73); PLATELET COUNT 202 x10^3/uL (140-400); RED BLOOD COUNT 4.42 x10^6/uL (4.30-5.70); RED CELL DISTRIBUTION WIDTH 13.6 % (11.5-14.5); WHITE BLOOD COUNT 6.1 x10^3/uL (4.0-11.0)
[2020-12-06 16:27] LABS: ALBUMIN 3.6 g/dL (3.4-5.0); CALCIUM 8.7 mg/dL (8.5-10.1); CREATININE 1.6 mg/dL (0.7-1.3); GFR 41.7; PHOSPHORUS 3.7 mg/dL (2.6-4.7); POTASSIUM 4.7 mmol/L (3.5-5.1)
[2020-12-07 09:14] LABS: CALCIUM PTH 9.3 mg/dL (8.6-10.2); PHOSPHORUS PTH 3.4 mg/dL (2.8-4.1); PTH INTACT 40 pg/mL (15-65)
== END ==
LOC: LAB 15:33
PROVIDERS: ATTEND Internal Medicine Nephrology
DX: I12.9 Hypertensive chronic kidney disease with stage 1 through stage 4 chronic kidney disease, or unspecified chronic kidney disease (principal); N18.32 Chronic kidney disease, stage 3b
CPT/HCPCS: 36415; 80069; 83970; 85025

== ENCOUNTER → 2021-03-13 | Outpatient (CLI) | payer MEDICARE, BC ==
[2020-05-09 14:47] VITALS: BP 101/53
[~2021-03-13] MED LIST changes: +REGADENOSON 0.4 MG/5 ML DISP.SYRIN. IV ONE
--- NOTE | 2021-03-13 11:27 | CARD ---
MR#: [id number] Date of Study: 03/13/2021 Ordering Physician: ANUSHA HOLMAN, Referring Physician: ANUSHA HOLMAN, Tech: Maite Sheffield [facility] APPROVED REPORT EXAM: Two-dimensional and M-mode echocardiogram with Doppler and color Doppler. Other Information Quality : AverageHR: 50bpm INDICATION Cardiac Disease: CAD RISK FACTORS Hypertension Hyperlipidemia 2D DIMENSIONS RVDd3.1 (2.9-3.5cm)Left Atrium(2D)3.4 (1.6-4.0cm) IVSd1.2 (0.7-1.1cm)Aortic Root(2D)3.3 (2.0-3.7cm) LVDd5.5 (3.9-5.9cm)LVOT Diameter2.0 (1.8-2.4cm) PWd1.1 (0.7-1.1cm)LVDs4.0 (2.5-4.0cm) FS (%) 27.2 %SV76.2 ml LVEF(%)52.3 (>50%) Aortic Valve AoV Peak Darrin.177.4cm/sAoV VTI48.7cm AO Peak GR.12.6mmHgLVOT Peak Darrin.99.7cm/s LVOT VTI 26.66cmAO Mean GR.7mmHg WARD (VMAX)1.21jw6VTI (VTI)1.76cm2 AI P 1/2 Quxp251pb Mitral Valve MV E Kmqikzfi479.8cm/sMV E Peak Gr.155mmHg MV DECEL AXBR232rwWD A [place]wtank30.8cm/s MV E Mean Gr.2mmHgMV LCF80vt E/A Ratio1.6MVA (PHT)5.19cm2 TDI E/Lateral E'13.1E/Medial E'20.3 Pulmonary Valve PV Peak Hmxnylqm20.3cm/sPV Peak Grad.4mmHg Tricuspid Valve TR P. Dsnrmhuk242hz/sRAP BTSOMBMB0lrTj TR Peak Gr.73uyCqZLDG23kpMw Pulmonary Vein S1 Ajqyhgrw70.8cm/sD2 Mkclwmuu18.2cm/s PVa drmnejnt550xdma LEFT VENTRICLE The left ventricle is normal size. There is mild concentric left ventricular hypertrophy. The left ve ntricular systolic function is normal and the ejection fraction is within normal range. The Ejection Fraction is 50-55%. There is normal LV segmental wall motion. Transmitral Doppler flow pattern is Gra de II-pseudonormal filling dynamics. RIGHT VENTRICLE The right ventricle is normal size. There is normal right ventricular wall thickness. The right ventr icular systolic function is normal. ATRIA The left atrium is borderline dilated. The right atrium is borderline dilated. The interatrial septum is intact with no evidence for an atrial septal defect or patent foramen ovale as noted on 2-D or Do ppler imaging. AORTIC VALVE The aortic valve is calcified but opens well. Doppler and Color Flow revealed trace to mild aortic re gurgitation. There is no significant aortic valvular stenosis. Calculated aortic valve area is 1.75 c m2 with maximum pressure gradient of 16 mmHg and mean pressure gradient of 8 mmHg. MITRAL VALVE The mitral valve is normal in structure and function. There is no evidence of mitral valve prolapse. There is no mitral valve stenosis. Doppler and Color-flow revealed mild mitral regurgitation. TRICUSPID VALVE The tricuspid valve is normal in structure and function. Doppler and Color Flow revealed trace tricus pid regurgitation with an estimated PAP of 35 mmHg. There is no tricuspid valve stenosis. PULMONIC VALVE Doppler and Color Flow revealed trace to mild pulmonic valvular regurgitation. There is no pulmonic v alvular stenosis. GREAT VESSELS The aortic root is normal in size. The ascending aorta is normal in size. The IVC is normal in size a nd collapses >50% with inspiration. PERICARDIAL EFFUSION There is no evidence of significant pericardial effusion. Critical Notification Critical Value: No <Conclusion> The left ventricular systolic function is normal and the ejection fraction is within normal range. Th e Ejection Fraction is 50-55%. There is normal LV segmental wall motion. Signed by : Merlin Lisa, Electronically Approved : 03/13/2021 11:27:06
--- NOTE | 2021-03-14 11:10 | RAD ---
MR#: [id number] Date of Study: 03/13/2021 Ordering Physician: ANUSHA HOLMAN, Referring Physician: OLIVE HOANG Tech: SOLOMON Omalley ARRT (Joey) (N) APPROVED REPORT Test Type: Pharmacological Stress Nurse/Tech: Fantasma Davis RN Test Indications: CAD Cardiac History: RI, high cholesterol Medications: See Electronic Medical Record Medical History: See Electronic Medical Record Resting ECG: SB with PAC Resting Heart Rate: 48 bpm Resting Blood Pressure: 143/65mmHg Pretest Chest Pain: None Nurse/Tech Notes lungs CTA, S1S2 Consent: The procedure was explained to the patient in lay terms. Informed consent was witnessed. Branden eout was entered into [facility]. History and Stress Test performed by SOLOMON Omalley ARRT (R) (N) Pharm. Details Pharmacologic stress testing was performed using 0.4mg per 5ml of regadenoson given intravenously ove r 7-10 seconds. Stress Symptoms No chest pain or symptoms. POST EXERCISE Reason for Termination: Infusion complete Max HR: 67 bpm Max Blood Pressure: 173/63mmHg Blood Pressure response to exercise: Normal blood pressure response during stress. Heart Rate response to exercise: normal response Chest Pain: No. Arrhythmia: No. ST Change: No. INTERPRETATION Stress EKG Conclusion: No evidence of stress induced EKG changes. Imaging Protocol IMAGE PROTOCOL: Rest Tc-99m/stress Tc-99m 1 day Rest: Stress: Viability: Radiopharm.Tc99m JpunbwbmuKx97z Sestamibi Hyhd52fIa 31mCi Img Date 03/13/2021 03/13/2021 Inj-Img Mxjx06pdz. 90min. Rest Admin Site:IV - Right AntecubitalAdministrator:SOLOMON Omalley ARRT (R)(N) Stress Admin Site: IV - Right AntecubitalAdministrator: RT Oliver (R)(N) STRESS DATA End Diast. Vol.111.0mlAv. Heart Rate48.0bpm End Syst. Vol.28.0mlCO Index BSA4.0L/min Myocardial Suzs391.0gEject. Vhworwtj83.0% Stress Rates Pk. Fill Rate2.22EDV/secLVtime Pk. Fill 233.38msec Pk. Empty Rate2.85ESV/secLVtime Pk. Blaki721.46msec 1/3 Pk. Fill1.41EDV/sec Stress Scores Regional WT0.00Summed WT0.00 Regional WM0.00Summed WM1.00 The rest and stress images show normal perfusion, normal contraction and thickening. LV Perf. Quant 17 Seg. SSS0.00 17 Seg. SRS6.00 17 Seg. SDS0.00 Stress Defect Extent (% LAD)5.00Rest Defect Extent (% LAD)13.80Rev. Defect Extent (% LAD)0.00 Stress Defect Extent (% LCX) 0.00Rest Defect Extent (% LCX)3.80Rev. Defect Extent (% LCX)0.00 Stress Defect Extent (% RCA)0.00Rest Defect Extent (% RCA)0.00Rev. Defect Extent (% RCA)0.00 Stress Defect Extent (% CHARY)3.90Rest Defect Extent (% CHARY)10.00Rev. Defect Extent (% CHARY)0.00 Other Information Quality:Average Risk Assessment: Low Risk Conclusion 1. No evidence of EKG changes with stress testing. 2. Normal perfusion at stress/rest. 3. Low risk study. 4. EF > 60%. Signed by : Merlin Lisa, Electronically Approved : 03/14/2021 11:10:38
== END ==
LOC: NM 08:15
PROVIDERS: ATTEND Internal Medicine Cardiovascular Disease
DX: I08.8 Other rheumatic multiple valve diseases (principal); I25.10 Atherosclerotic heart disease of native coronary artery without angina pectoris
CPT/HCPCS: 78452; 93017; 93306; A9500; J2785

== ENCOUNTER → 2021-09-20 | Outpatient (CLI) | payer MEDICARE, BC ==
[2020-05-09 14:47] VITALS: BP 101/53
[~2021-09-20] MED LIST changes: +AMIO200T53 PO; -AMIO200T6 PO; -REGADENOSON 0.4 MG/5 ML DISP.SYRIN. IV ONE
[2021-09-20 10:42] LABS: CHOLESTEROL/HDL RATIO 2.3
== END ==
LOC: LAB 09:41
PROVIDERS: ATTEND Internal Medicine Cardiovascular Disease
DX: I25.10 Atherosclerotic heart disease of native coronary artery without angina pectoris (principal)
CPT/HCPCS: 36415; 80061